=== PATIENT | female | born 1985 | race Caucasian/White ===

== ENCOUNTER 2017-09-17 23:44 | Emergency (ER) | payer BC, OTHER ==
[~2017-09-17] VITALS: Ht 172.7 cm; Wt 83.9 kg
[2017-09-18] MEDS ORDERED: SYNTHROID (00:25)
[2017-09-18] MEDS ORDERED: ONDANSETRON 4 MG/2 ML VIAL IV ONE (00:45)
[2017-09-18] MEDS ORDERED: IV NORMAL SALINE 1000 ML BAG IV ONE (00:45)
[2017-09-18 00:52] LABS: BASOPHILS % (AUTO) 0.1 % (0.0-2.0); EOSINOPHILS % (AUTO) 0.2 % (0.0-7.0); HEMATOCRIT 38.4 % (31.2-41.9); HEMOGLOBIN 13.5 g/dL (10.9-14.3); LYMPHOCYTES # (AUTO) 0.6 K/uL (20.0-40.0); LYMPHOCYTES % (AUTO) 5.2 % (20.5-51.5); MEAN CORPUSCULAR HEMOGLOBIN 32.1 uug (24.7-32.8); MEAN CORPUSCULAR HGB CONC 35 g/dL (32.3-35.6); MEAN CORPUSCULAR VOLUME 91.6 fL (75.5-95.3); MONOCYTES # (AUTO) 0.4 K/uL (2.0-10.0); MONOCYTES % (AUTO) 3.6 % (0.0-11.0); NEUTROPHILS # (AUTO) 9.7 K/uL (1.8-8.9); NEUTROPHILS % (AUTO) 90.9 % (38.5-71.5); PLATELET COUNT (AUTO) 181 K/uL (179-408); RED BLOOD CELL COUNT(AUTO) 4.19 MIL/uL (3.63-4.92); WHITE BLOOD COUNT (AUTO) 10.7 K/uL (3.8-11.8)
--- NOTE | 2017-09-18 01:05 | NUR ---
Pt c/o n/v/d and generalized cramping ABD pain, 3-4/10, since late morning. Pt denies CP, SOB, dizziness, no other complaints, minor distress noted.
[2017-09-18] MEDS ORDERED: ONDANSETRON 4 MG/2 ML VIAL ONE ×2 (01:06→02:38)
[2017-09-18 01:10] LABS: CREATININE 0.7 mg/dL (0.6-1.3); POTASSIUM 3.7 mmol/L (3.5-5.1)
[2017-09-18 01:25] LABS: BILIRUBIN,DIRECT 0.1 mg/dL (0.0-0.2); BILIRUBIN,TOTAL 0.4 mg/dL (0.2-1.0); TOTAL PROTEIN, SERUM 6.9 g/dL (6.4-8.2)
[2017-09-18] MEDS ORDERED: ONDANSETRON IV *ER 4 MG/2 ML VIAL IV ONE (02:30)
--- NOTE | 2017-09-18 02:33 | NUR ---
Removed IV intact, site okay, bandaged. Gave pt RX and d/c instructions, verbalized understanding.
[2017-09-18 02:34] VITALS: BP 98/46
== END 2017-09-18 02:38 | disposition home or self-care (01) ==
LOC: ER 23:44
DX: O26.892 Other specified pregnancy related conditions, second trimester (principal); O21.9 Vomiting of pregnancy, unspecified; R19.7 Diarrhea, unspecified; E03.9 Hypothyroidism, unspecified; Z3A.19 19 weeks gestation of pregnancy
CPT/HCPCS: 36415; 83690; 85025; 87040; A4663; J2405; J7030

== ENCOUNTER 2023-07-12 22:37 | Emergency (ER) | payer BC, OTHER ==
[~2023-07-12] VITALS: Ht 172.7 cm; Wt 97.5 kg
[~2023-07-12 22:37] MED LIST: SYNTHROID
[2023-07-12] MEDS ORDERED: FAMOTIDINE. 20 MG/2 ML VIAL IV ONE (23:24)
[2023-07-12] MEDS ORDERED: ONDANSETRON 4 MG/2 ML VIAL ONE (23:24)
[2023-07-12 23:29] LABS: BASOPHILS # (AUTO) 0.3 K/UL (0.0-0.2); BASOPHILS % (AUTO) 2.3 % (0.0-2.0); EOSINOPHILS # (AUTO) 0.1 K/uL (0.0-0.7); EOSINOPHILS % (AUTO) 0.7 % (0.0-7.0); HEMATOCRIT 43.2 % (31.2-41.9); HEMOGLOBIN 14.3 g/dL (10.9-14.3); LYMPHOCYTES # (AUTO) 1.1 K/uL (0.8-4.8); LYMPHOCYTES % (AUTO) 9.4 % (20.5-51.5); MEAN CORPUSCULAR HEMOGLOBIN 30.2 uug (24.7-32.8); MEAN CORPUSCULAR HGB CONC 33 g/dL (32.3-35.6); MEAN CORPUSCULAR VOLUME 91.1 fL (75.5-95.3); MONOCYTES # (AUTO) 0.6 K/uL (0.1-1.30); NEUTROPHILS # (AUTO) 10.1 K/uL (1.8-8.9); NEUTROPHILS % (AUTO) 82.6 % (38.5-71.5); PLATELET COUNT (AUTO) 262 K/uL (179-408); RED BLOOD CELL COUNT(AUTO) 4.74 MIL/uL (3.63-4.92); RED CELL DISTRIBUTION WIDTH 13.7 % (12.3-17.7); WHITE BLOOD COUNT (AUTO) 12.2 K/uL (3.8-11.8)
[2023-07-12] MEDS: FAMOTIDINE. 20 MG/2 ML VIAL IV ONE (23:29)
[2023-07-12] MEDS: IV NORMAL SALINE 1000 ML BAG IV ONE (23:29)
[2023-07-12] MEDS: ONDANSETRON 4 MG/2 ML VIAL IV ONE (23:29)
[2023-07-12 23:30] LABS: DIFFERENTIAL COMMENT 1
[2023-07-12 23:45] LABS: ALANINE AMINOTRANSFERASE 19 U/L (14-59); ALKALINE PHOSPHATASE 76 U/L (50-136); ASPARTATE AMINOTRANSFERASE 14 U/L (15-37); BILIRUBIN,DIRECT 0.2 mg/dL (0.0-0.2); BILIRUBIN,TOTAL 0.5 mg/dL (0.2-1.0); CALCIUM 9.8 mg/dL (8.5-10.1); CARBON DIOXIDE 25 mmol/L (21-32); CHLORIDE 103 mmol/L (98-107); CREATININE 1.1 mg/dL (0.6-1.3); GLUCOSE 111 mg/dL (74-106); LIPASE 35 U/L (16-77); POTASSIUM 3.9 mmol/L (3.5-5.1); SODIUM SERUM 141 mmol/L (136-145); TOTAL PROTEIN, SERUM 7.5 g/dL (6.4-8.2); UREA NITROGEN, BLOOD 21 mg/dL (7-18)
[2023-07-12 23:54] LABS: PREGNANCY TEST SERUM QUAN 1 miul/L (0-6)
[2023-07-13] MEDS ORDERED: ONDA4TAB11 PO ×2 (00:07→00:40)
[2023-07-13 00:37] VITALS: BP 132/76; TEMP 98.5; O2SAT 100
== END 2023-07-13 00:39 | disposition home or self-care (01) ==
LOC: ER 22:46
DX: E86.0 Dehydration (principal); R11.10 Vomiting, unspecified; R10.2 Pelvic and perineal pain; R19.7 Diarrhea, unspecified; E03.9 Hypothyroidism, unspecified; Z79.899 Other long term (current) drug therapy; Z88.1 Allergy status to other antibiotic agents
CPT/HCPCS: 99284; 96374; 96361; 96375; 80076; 80048; 83690; 85025; 84484; 84702; 36415; J3490; J2405; J7040; A4606; A4663